=== PATIENT | female | born 1935 | race Caucasian/White ===

== ENCOUNTER → 2016-11-07 | Outpatient (CLI) | payer MEDICARE, BC ==
[2005-04-06 06:55] VITALS: PULSE 80; TEMP 98.7
[~2016-11-07] MED LIST: ASPIRIN 81M81 MG/TA2 PO; CEPHALEXIN500 M1 PO; DIFLUCAN150 MG PO; NORVASC2.5 MG PO; VITAMIN D1000 IU PO
== END ==
LOC: MC.RAD 13:48
DX: Z12.31 Encounter for screening mammogram for malignant neoplasm of breast (principal); Z80.3 Family history of malignant neoplasm of breast

== ENCOUNTER → 2017-02-03 | Outpatient (CLI) | payer MEDICARE, BC ==
[2005-04-06 06:55] VITALS: PULSE 80; TEMP 98.7
== END ==
LOC: COL.RAD 07:46
DX: S06.5X0D Traumatic subdural hemorrhage without loss of consciousness, subsequent encounter (principal)

== ENCOUNTER 2017-03-06 18:49 | Inpatient (IN) | payer MEDICARE, BC ==
[~2017-03-06] VITALS: Ht 160 cm; Wt 52.2 kg
[2017-03-06] MEDS ORDERED: VITAMIN D1000 IU PO (18:56)
[2017-03-06] MEDS ORDERED: ASPIRIN 81M81 MG/TA2 PO (18:56)
[2017-03-06 19:22] LABS: BASO % 0.2 % (0.0-2.0); EOS % 0.1 % (0-4.0); GRAN # 15.4 (1.4-6.5); GRAN % 87.3 % (42.2-75.2); HEMATOCRIT 40.3 % (37.0-47.0); HEMOGLOBIN 13.7 g/dl (12.5-16.0); LYMPH % 5.8 % (20.0-51.0); MEAN CELL VOLUME 90 fl (80.0-100.0); MEAN CORPUSCULAR HEMOGLOBIN 31 pg (27.0-31.0); MEAN CORPUSCULAR HGB CONC 34 g/dl (33.0-37.0); MEAN PLATELET VOLUME 9.8 fl (7.4-10.4); MONO # 1.1 (0.1-0.6); MONO % 6.1 % (1.7-9.3); PLATELET COUNT 202 K/mm3 (130-400); RED BLOOD COUNT 4.46 M/mm3 (4.10-5.30); REDCELL DISTRIBUTION WIDTH-CV 12.5 % (11.5-14.5); WHITE BLOOD COUNT 17.6 K/mm3 (4.8-10.8)
[2017-03-06 19:41] LABS: ADJUSTED CALCIUM 9.4 mg/dL (8.4-10.2); ALBUMIN 4.3 gm/dL (3.5-5.0); BILIRUBIN,TOTAL 0.9 mg/dL (0.0-1.0); CALCIUM 9.6 mg/dL (8.4-10.2); CREATININE, serum 0.69 mg/dL (0.52-1.25); POTASSIUM 4.1 mmol/L (3.4-5.0); TOTAL PROTEIN 7.5 gm/dL (6.4-8.2)
[2017-03-06 20:26] LABS: PH 7 (5-8); SQUAMOUS EPITHELIAL None Seen /hpf; URINE APPEARANCE Clear; URINE BACTERIA None Seen /hpf; URINE BILIRUBIN Negative (NEGATIVE); URINE BLOOD Negative (NEGATIVE); URINE COLOR Straw; URINE GLUCOSE Negative (NEGATIVE); URINE KETONE Negative (NEGATIVE); URINE RBC None Seen /hpf; URINE UROBILINOGEN Negative (NEGATIVE); URINE WBC 0-2 /hpf
[2017-03-06 21:42] VITALS: BP 135/70; PULSE 85; TEMP 98.1
[2017-03-06 23:24] VITALS: BP 113/51; PULSE 85; TEMP 98.5
[2017-03-07 02:51] VITALS: BP 113/52; PULSE 85; TEMP 97.8
[2017-03-07 08:20] VITALS: BP 119/85; PULSE 81; TEMP 97.6
[2017-03-07 09:23] LABS: BASO % 0.2 % (0.0-2.0); EOS % 0.1 % (0-4.0); GRAN % 83.7 % (42.2-75.2); LYMPH % 12.1 % (20.0-51.0); MEAN CELL VOLUME 93 fl (80.0-100.0); MEAN CORPUSCULAR HGB CONC 33 g/dl (33.0-37.0); MEAN PLATELET VOLUME 10.6 fl (7.4-10.4); MONO # 0.3 (0.1-0.6); MONO % 3.7 % (1.7-9.3); PLATELET COUNT 163 K/mm3 (130-400); RED BLOOD COUNT 3.59 M/mm3 (4.10-5.30); REDCELL DISTRIBUTION WIDTH-CV 12.5 % (11.5-14.5); WHITE BLOOD COUNT 8.3 K/mm3 (4.8-10.8)
[2017-03-07 09:25] LABS: HEMATOCRIT 33.4 % (37.0-47.0); HEMOGLOBIN 10.9 g/dl (12.5-16.0); MEAN CORPUSCULAR HEMOGLOBIN 30 pg (27.0-31.0)
[2017-03-07 09:34] LABS: ALBUMIN 3.2 gm/dL (3.5-5.0); BILIRUBIN,TOTAL 0.6 mg/dL (0.0-1.0); CALCIUM 8.4 mg/dL (8.4-10.2); CREATININE, serum 0.65 mg/dL (0.52-1.25); POTASSIUM 3.8 mmol/L (3.4-5.0); TOTAL PROTEIN 5.7 gm/dL (6.4-8.2)
[2017-03-07 11:57] VITALS: BP 114/61; PULSE 70; TEMP 98.5
[2017-03-07 15:04] VITALS: BP 118/60; PULSE 76; TEMP 98.2
[2017-03-07 18:05] LABS: ANA SCREEN with REFLEX Negative (Negative)
[2017-03-07 22:17] VITALS: BP 131/69; PULSE 79; TEMP 97.6
[2017-03-08 04:10] VITALS: BP 116/67; PULSE 76; TEMP 98
[2017-03-08 07:34] VITALS: BP 126/69; PULSE 68; TEMP 98.1
[2017-03-08 13:23] VITALS: BP 132/66; PULSE 76; TEMP 98.4
[2017-03-08 15:48] VITALS: BP 149/72; PULSE 80; TEMP 97.8
[2017-03-08 19:43] VITALS: BP 156/88; PULSE 76; TEMP 98.6
[2017-03-08 23:04] VITALS: BP 132/70; PULSE 96; TEMP 98.3
[2017-03-09 02:43] VITALS: BP 116/54; PULSE 73; TEMP 98.7
[2017-03-09 07:01] LABS: BASO % 0.4 % (0.0-2.0); EOS # 0.1 (0.0-0.7); EOS % 1.9 % (0-4.0); GRAN % 63.5 % (42.2-75.2); HEMOGLOBIN 12.4 g/dl (12.5-16.0); LYMPH # 1.3 (1.2-3.4); LYMPH % 27.4 % (20.0-51.0); MEAN CELL VOLUME 90 fl (80.0-100.0); MEAN CORPUSCULAR HEMOGLOBIN 31 pg (27.0-31.0); MEAN CORPUSCULAR HGB CONC 34 g/dl (33.0-37.0); MEAN PLATELET VOLUME 10.5 fl (7.4-10.4); MONO # 0.3 (0.1-0.6); MONO % 6.4 % (1.7-9.3); PLATELET COUNT 202 K/mm3 (130-400); RED BLOOD COUNT 4.05 M/mm3 (4.10-5.30); REDCELL DISTRIBUTION WIDTH-CV 12.2 % (11.5-14.5); WHITE BLOOD COUNT 4.7 K/mm3 (4.8-10.8)
[2017-03-09 07:03] LABS: HEMATOCRIT 36.3 % (37.0-47.0)
[2017-03-09 08:16] VITALS: BP 144/74; PULSE 68; TEMP 98.5
[2017-03-09] MEDS ORDERED: NORVASC2.5 MG PO (09:41)
[2017-03-09] MEDS ORDERED: CEPHALEXIN500 M1 PO (09:42)
[2017-03-09] MEDS ORDERED: DIFLUCAN150 MG PO (09:42)
== END 2017-03-09 10:58 | disposition home or self-care (01) | DRG 603 ==
LOC: COL.ER 18:49 → MEDICAL 20:31
PROVIDERS: Emergency Medicine; Internal Medicine; Physician Assistant
DX: L03.116 Cellulitis of left lower limb (principal); E87.1 Hypo-osmolality and hyponatremia; I16.0 Hypertensive urgency; E86.1 Hypovolemia; M25.511 Pain in right shoulder; R59.1 Generalized enlarged lymph nodes; R63.6 Underweight
CPT/HCPCS: 99223-AI; 99232-AI; 99233-AI; 99239; J0696; J1650; J7030

== ENCOUNTER → 2018-11-28 | Outpatient (CLI) | payer MEDICARE, BC | LOC: MC.RAD 11:06 | DX: Z12.31 Encounter for screening mammogram for malignant neoplasm of breast (principal) ==

== ENCOUNTER → 2020-02-24 | Outpatient (CLI) | payer MEDICARE, BC | LOC: MC.RAD 08:53 | DX: Z12.31 Encounter for screening mammogram for malignant neoplasm of breast (principal) ==

== ENCOUNTER → 2021-03-17 | Outpatient (CLI) | payer MEDICARE, BC | LOC: MC.RAD 03-09 11:00 | DX: Z12.31 Encounter for screening mammogram for malignant neoplasm of breast (principal) ==

== ENCOUNTER → 2022-03-25 | Outpatient (CLI) | payer MEDICARE, BC | LOC: MC.RAD 13:26 | DX: Z12.31 Encounter for screening mammogram for malignant neoplasm of breast (principal) ==

== ENCOUNTER → 2022-03-29 | Outpatient (CLI) | payer MEDICARE, BC | LOC: MC.RAD 08:00 | DX: N63.11 Unspecified lump in the right breast, upper outer quadrant (principal) ==

== ENCOUNTER 2022-04-29 06:48 | Day surgery (SDC) | payer MEDICARE, BC ==
[~2022-04-29] VITALS: Ht 160 cm; Wt 56.5 kg
[2022-04-29 08:12] VITALS: BP 162/72; PULSE 69; TEMP 97.1
--- NOTE | 2022-04-29 09:10 | NUR ---
Initial visit; Patient thanked Mirror Maker for looking in on her and offering encouragement, comfort and prayer prior to her surgical procedure. Mirror Maker prayed for a rapid and thorough recovery as well and offered God's blessings.
[2022-04-29 09:33] VITALS: BP 139/71; PULSE 63; TEMP 97.1
[2022-04-29] MEDS ORDERED: NORCO 325 MG-51 TAB PO (09:42)
[2022-04-29 09:48] VITALS: BP 148/72; PULSE 61
[2022-04-29 10:03] VITALS: BP 148/69; PULSE 62
[2022-04-29 10:18] VITALS: BP 166/70; PULSE 67
--- NOTE | 2022-04-29 13:52 | NUR ---
0933 - PT RETURNS TO ROOM 7 VIA CART. DROWSY. IV INTACT TO L WRIST WITH LR INFUSING AT TKO. VS MONITOR ATTACHED. O2 OFF. DRESSING TO RIGHT BREAST DRY AND INTACT. CALL LIGHT IN REACH. FAMILY IN ROOM. 0948 - PT GIVEN BLUEBERRY MUFFING AND ORANGE JUICE. PT MORE AWAKE. CALL REMAINS AT PT REACH. 1018 - PT IV DC'D WITH CATH INTACT. ASSIST TO BATHROOM. GAIT STEADY. RETURNS TO ROOM AND STATES SHEE IS READY TO GO HOME. DISCHARGE INSTRUCTIONS GONE OVER WITH VERBAL UNDERSTANDING. TIME ALLOWED FOR PT TO DRESS AND THEN IN TO WHEELCHAIR AND TRANSPORTED TO PRIVATE VEHICLE AT PATIENT ENTRANCE.
== END 2022-04-29 11:00 | disposition home or self-care (01) ==
LOC: SDCO 06:48
DX: C50.411 Malignant neoplasm of upper-outer quadrant of right female breast (principal); Z17.0 Estrogen receptor positive status [ER+]
CPT/HCPCS: A4648; J0690; J1100; J2405; J2704; J3010; J7120